=== PATIENT | female | born 1980 | race Two or more races ===

== ENCOUNTER 2025-07-05 10:18 | Outpatient (CLI) | payer MEDICAID ==
[2025-07-05 11:20] LABS: Hematocrit 38.5 % (36.0-46.0); Hemoglobin 12.9 g/dL (12.2-16.2); Mean Corpuscular Hemoglobin 27.7 pg (28.0-32.0); Mean Corpuscular Volume 82.7 fL (80.0-100.0); Nucleated Red Blood Cells % 0.1 %
[2025-07-05 12:01] LABS: Alanine Aminotransferase 28 U/L (7-40); Alkaline Phosphatase 97 U/L (46-116); Anion Gap 10 (5-15); BUN/Creatinine Ratio 18.8 (10.0-20.0); Blood Urea Nitrogen 12 mg/dL (9-23); Calcium 9.1 mg/dL (8.7-10.4); Carbon Dioxide 25 mmol/L (20-31); Chloride 105 mmol/L (98-107); Potassium 4.0 mmol/L (3.5-5.1); Sodium 140 mmol/L (136-145); Total Protein 7.6 g/dL (5.7-8.2)
[2025-07-05 12:02] LABS: Albumin 4.6 g/dL (3.2-4.8)
[2025-07-05 12:03] LABS: Bilirubin, Total 0.4 mg/dL (0.2-1.0)
[2025-07-05 12:04] LABS: Follicle Stimulating Hormone 2.43 IU/L (SEE BELOW)
[2025-07-05 12:05] LABS: Glucose 108 mg/dL (74-106)
[2025-07-05 12:06] LABS: Free T4 (Free Thyroxine) 1.02 ng/dL (0.89-1.76)
[2025-07-07 05:08] LABS: Chlamydia Trachomatis, NAA Negative (Negative); Neisseria gonorrhoeae, NAA Negative (Negative)
== END 2025-07-05 17:00 | disposition home or self-care (01) ==
LOC: LAB 10:18
DX: N92.0 Excessive and frequent menstruation with regular cycle (principal); R10.9 Unspecified abdominal pain
CPT/HCPCS: 36415; 80053; 82626; 82670; 83001; 83002; 83036; 83525; 84146; 84270; 84402; 84403; 84439; 84443; 85025; 86703; 87902